=== PATIENT | female | born 1970 | race Caucasian/White ===

== ENCOUNTER 2016-05-26 15:09 | Inpatient (IN) | payer OTHER ==
--- NOTE | 2016-05-26 17:22 | ERNOTE ---
Abdominal HPI - General Chief Complaint: Abdominal Pain Source: patient Exam Limitations: no limitations - Immun/Allergies/Home Medications Immunizatons: IMMUNIZATION HX Immunizations Up to Date Yes History of Influenza Vaccine No Hx Pneumococcal Vaccination No Allergies/Adverse Reactions: Allergies nitrofurantoin [From Macrobid] Allergy (Mild, Verified 05/26/16 16:25) Hives nitrofurantoin macrocrystalline [From Macrobid] Allergy (Mild, Verified 16:25) Hives Sulfa (Sulfonamide Antibiotics) Allergy (Mild, Verified 05/26/16 16:25) Hives morphine Adverse Reaction (Mild, Verified 05/26/16 16:25) Headache Home Medications: HOME MEDICATIONS Ondansetron HCl [Zofran] 1 - 2 mg PO Q8H PRN #10 tab 01/03/16 [Last Taken Unknown] - History of Present Illness Timing: constant Quality: severe, cramping Activities at Onset: none Prior Abdominal Problems: Present: none Prior Treatment: Present: treated by physician Review of Systems - Review of Systems Constitutional: Present: See HPI EYE: Present: no symptoms reported ENT: Present: no symptoms reported Respiratory: Present: no symptoms reported Cardiology: Present: no symptoms reported Gastrointestinal/Abdominal: Present: nausea, abdominal pain Genitourinary: Present: no symptoms reported Musculoskeletal: Present: no symptoms reported Skin: Present: no symptoms reported Neurological: Present: no symptoms reported Endocrine: Present: no symptoms reported Hematologic/Lymphatic: Present: no symptoms reported Psych: Present: no symptoms reported - Patient's Past Medical History Patient History - Medical: Kidney stone, Other Patient History - Cardiac/Respiratory: No pertinent hx Patient History - Cancer: No Hx of Cancer Patient History - Surgical Procedures: Appendectomy, Cholecystectomy, Hysterectomy, T & A Patient History - Other: None - Family History Father Family History - Medical: No pertinent hx Family History - Cardiac/Respiratory: Myocardial Infarction Mother Family History - Medical: Other Family History - Cardiac/Respiratory: Asthma, Hypertension, Hyperlipidemia - Social History Living Situations: spouse Abuse History: No History of abuse Psych History: No pertinent hx Alcohol Use: none Drug Use: none - Immunizations Immunizations Up to Date: Yes Hx Pneumococcal Vaccination: No History of Influenza Vaccine: No Physical Exam - Physical Exam General Appearance: Present: wd/wn, alert, moderate distress Eye Exam: Normal inspection: bilateral, PERRL: bilateral Ears, Nose, Throat: Present: normal ENT inspection, H, normal pharynx Neck: Present: normal inspection, nontender Respiratory: Present: no respiratory distress, normal breath sounds, no accessory muscle use, chest nontender, lungs clear Cardiovascular/Chest: Present: regular rate, rhythm, no murmur, normal peripheral pulses Peripheral Pulses: N=norm/S=strong/W=weak/B=bound/A=absent: Dorsalis-pedis (L): Normal Gastrointestinal/Abdominal: Present: soft, no organomegaly, tenderness, abnormal bowel sounds Rectal Exam: Present: deferred Back Exam: Present: normal inspection, normal range of motion Extremity Exam: Present: normal inspection, non-tender, no edema, normal range of motion Neurological Exam: Present: alert, oriented, normal mood/affect Skin Exam: Present: normal color, warm/dry Lymphatic Exam: Present: no adenopathy ED Progress - Vital Signs Patient's Vital Signs:: I have reviewed the patient's vital signs. Vital Signs: Vital Signs 05/26/16 16:05 Temperature 37.0 C Pulse Rate 95 Respiratory 22 H Rate Blood Pressure 128/82 O2 Sat by Pulse 95 Oximetry - Progress/Reassessment Chief Complaint: Abdominal Pain Progress:: Unchanged Progress Note-Subjective: 05/26/16 17:19 Patient was transferred here from [facility] because they do not have surgical services. Patient will be admitted to the surgical floor and the NG is in place Dr. Hayden is aware the patient is here and Melody Pacheco has agreed to admit. Plan - Plan Plan: Patient to be admitted to the general medical floor, surgical consult has been sought, patient has an NG in place and she'll be held nothing by mouth. Departure - Departure Clinical Impression: Small bowel obstruction Disposition: [facility] Condition: Fair
--- OUTSIDE RECORDS SUMMARY | 2016-05-26 17:26 | XMS REPORT | Continuity of Care Document ---
:1970 Author Organization [facility] ([facility]) Address [address] [place] [address] Phone [phone] Care Team Providers Name Role Phone Unavailable Primary Care Provider Unavailable Source Comments This disclosure is being made pursuant to the Care Everywhere program, applicable federal and state laws, and may not contain all informaitonavailable regarding this patient.[facility] ([facility]) Active Allergies and Adverse Reactions Allergen Noted Date Severity Reactions Comments Nitrofuran Analogues Urticaria (Hives) Macrodantin Sulfadoxine Urticaria (Hives) Current Medications Prescription Sig. Disp. Refills Start End Date Status Date FEXOFENADINE HCL Take 1 Tab by mouth Active (CB PO) daily. simvastatin 20 mg Take 1 Tab by mouth every 30 Tab 3 Active tablet evening. Indications: 4 HYPERCHOLESTEROLEMIA ondansetron 8 mg Take 1 Tab by mouth every 30 Tab 0 Active tablet 8 hours as needed. 4 Indications: nausea fluticasone 50 use 2 Sprays into both 16 g 1 Active mcg/Actuation nostrils daily. 4 nasal spray Indications: ALLERGIC RHINITIS LORazepam 0.5 mg Take 1 Tab by mouth every 30 Tab 0 Active tablet 8 hours as needed. 4 Indications: ANXIETY tiZANidine 2 mg Take 2 mg by mouth 3 Active tablet times daily as needed. traMADol 50 mg Take 50 mg by mouth 3 Active tablet times daily as needed. omeprazole 20 mg Take 1 capsule (20 mg 90 capsule 11 Active enteric coated total) by mouth daily. 6 capsule HYDROcodone-aceta Take 1 tablet by mouth 50 tablet 0 Active minophen 5-325 mg every 6 hours as needed 6 per tablet for pain. Active Problems Problem Noted Date Chronic LBP 05/14/2013 ANDRZEJ (stress urinary incontinence, female) 05/14/2013 Nocturia 05/14/2013 Urinary urgency 05/14/2013 Environmental allergies 05/14/2013 Muscle weakness 05/14/2013 Atrophic vaginitis 05/14/2013 Constipation 05/14/2013 Ochoa's esophagus 11/20/2012 Overview: Small areas of Best's intestinal metaplasia, s/p fundoplication, dilated to 15 mm Hyperlipidemia 11/20/2012 Adult BMI 37.0-37.9 kg/sq m 06/24/2012 Obesity, unspecified 06/19/2010 Kidney calculi 08/07/2009 Resolved Problems Problem Noted Date Resolved Date Abdominal pain 11/23/2012 05/14/2013 Gross hematuria 10/02/2011 05/14/2013 RUQ abdominal pain 06/19/2010 05/14/2013 Weight gain 06/19/2010 11/20/2012 Fatigue 06/19/2010 08/12/2012 GERD (gastroesophageal reflux disease) 06/19/2010 08/12/2012 Tobacco abuse 06/19/2010 11/20/2012 Most Recent Encounters Date Type Specialty Providers Description 03/13/2016 Office Visit Urology Sam Bingham MD Subj: RE: Appointment Jodi Robison PA-C canceled Immunizations Name Dates Previously Given Next Due Influenza, PF 11/15/2011 Influenza, quadrivalent PF 11/20/2012 Tdap 11/15/2011 Social History Tobacco Use Types Packs/Day Years Used Date Former Smoker Cigarettes 1 30 Quit: 05/12/2011 Smokeless Tobacco: Never Used Tobacco Cessation:Counseling Given: Yes Comments: Alcohol Use Drinks/Week oz/Week Comments No Last Filed Vital Signs Vital Sign Reading Time Taken Blood Pressure 140/85 09/06/2015 11:57 AM CDT Pulse 103 09/06/2015 11:57 AM CDT Temperature 37.2 C (99 F) 09/06/2015 11:57 AM CDT Respiratory Rate 16 06/04/2013 12:10 PM CDT Height 1.702 m (5' 7.01") 08/17/2015 8:18 AM CDT Weight 119.5 kg (263 lb 7.2 oz) 08/17/2015 8:18 AM CDT Body Mass Index 41.25 08/17/2015 8:18 AM CDT Oxygen Saturation 9% 07/12/2015 1:26 PM CDT Plan of Care Patient Goal Type Goal Diet Reduce calorie intake Lifestyle Increase physical activity Health Maintenance Due Date Last Done Comments Hepatitis B Vaccine (1 of 3 1970 - Primary Series) MMR Vaccine 1986 Mammogram 11/20/2013 11/20/2012, 10/02/2011, 06/22/2010 Cervical Cancer Screening 05/12/2014 05/13/2011 Influenza Vaccine: Seasonal 09/18/2015 11/20/2012, (#1) 11/15/2011 Lipid Disorder Screening 11/20/2017 11/20/2012, Additional history exists 04/11/2011, 10/11/2010 Td Vaccine 11/14/2021 11/15/2011, 04/11/2003 Tdap Vaccine Completed 11/15/2011 Results from Last 3 Months Not on file
--- OUTSIDE RECORDS SUMMARY | 2016-05-26 17:27 | XMS REPORT | Summary of Care ---
:1970 Author Organization [facility] Address [address] [place] [address] Care Team Providers Name Role Phone Yaquelin Yadav Primary Care Physician Encounter Date(s): 03/08/16 - 03/08/16 [facility], [address] [place] [address] Discharge Disposition: 01 Discharged to Home or Self Care Attending Physician: Mckinley Peng MD Vital Signs No data available for this section Problem List Condition Effective Dates Status Health Status Informant Gross hematuria(Confirmed) Active Hydroureter(Confirmed) Active CALCULUS OF KIDNEY(Confirmed) Active Back pain, chronic(Confirmed) Active Calculus of ureter(Confirmed) Active Allergies, Adverse Reactions, Alerts Substance Reaction Severity Status Macrodantin Hives Severe Active morphine H/O: migraine Severe Active sulfa drugs Hives Severe Active Medications acyclovir 200 mg oral capsule cap(s), Oral, 5x/Day, 0 Refill(s), Start Date: 03/03/14 9:11:00 UNDER CUTTER Start Date: 03/03/14 Stop Date: 03/14/14 Status: Completedazithromycin 250 mg oral tablet 1 packet(s), Oral, Per Package Label, as directed on package labeling, # 6 tab(s ), 0 Refill(s), Start Date: 01/24/16 14:29:00 UNDER CUTTER Start Date: 01/24/16 Stop Date: 01/29/16 Status: Orderedbaclofen 20 mg oral tablet 1 tab(s), Oral, TID, Start Date: 11/17/15 9:53:00 CDT Start Date: 11/17/15 Stop Date: 12/29/15 Status: CompletedCarafate 1 g oral tablet 1 tab(s), Oral, QID, # 120 tab(s), 0 Refill(s), Start Date: 01/30/16 8:43:00 UNDER CUTTER , Pharmacy: [facility] [id number] Start Date: 01/30/16 Stop Date: 02/16/16 Status: DiscontinuedCeleXA 10 mg oral tablet 1 tab(s), Oral, Daily, # 30 tab(s), 0 Refill(s) Start Date: 06/29/13 Stop Date: 03/07/14 Status: Discontinuedcephalexin 500 mg oral capsule 1 cap(s), Oral, QID, Start Date: 11/17/15 9:53:00 CDT Start Date: 11/17/15 Stop Date: 11/17/15 Status: DiscontinuedCipro 500 mg oral tablet 1 tab(s), Oral, q12hr, # 14 tab(s), 0 Refill(s), Start Date: 08/15/14 7:56:00 CDT, [id number] Start Date: 08/15/14 Stop Date: 09/21/14 Status: CompletedDiflucan 150 mg oral tablet 1 tab(s), Oral, Daily, # 3 tab(s), 0 Refill(s), Start Date: 02/22/15 13:44:00 UNDER CUTTER, Pharmacy: [place], [place] Start Date: 02/22/15 Stop Date: 11/17/15 Status: CompletedDilaudid 2 mg oral tablet 1 tab(s), Oral, q4hr, PRN for pain, # 40 tab(s), 0 Refill(s), other reason (Rx) Start Date: 11/24/13 Stop Date: 03/03/14 Status: CompletedDilaudid 2 mg oral tablet 1 tab(s), Oral, q6hr interval, PRN pain severe 8-10, # 24 tab(s), 0 Refill(s), Start Date: 11/17/15 17:14:00 CDT, Pharmacy: [place], [place] Start Date: 11/17/15 Stop Date: 12/29/15 Status: CompletedDitropan 5 mg oral tablet 1 tab(s), Oral, q12hr, PRN bladder spasm, cramping, severe stent pain, # 30 tab( s), 1 Refill(s), Start Date: 11/17/15 17:14:00 CDT, Pharmacy: [facility] [place], [place] Start Date: 11/17/15 Stop Date: 12/29/15 Status: CompletedDME - Shoulder Immobilizer See Instructions, Diagnosis Code: Length of Need: , # 1 EA, 0 Refill(s), 06/29/13 16:39:00 CDT, Supply Start Date: 06/29/13 Stop Date: 06/29/13 Status: CompletedFlexeril 10 mg oral tablet 1 tab(s), Oral, TID, X 10 days, # 30 tab(s), 0 Refill(s), Start Date: 12/05/15 18:17:00 CDT Start Date: 12/05/15 Stop Date: 12/15/15 Status: Completedibuprofen 800 mg oral tablet 1 tab(s), Oral, TID, # 90 tab(s), 0 Refill(s), Start Date: 03/16/14 11:26:00 UNDER CUTTER , Pharmacy: [facility] [id number] Start Date: 03/16/14 Stop Date: 11/17/15 Status: Completedibuprofen 800 mg oral tablet 1 tab(s), Oral, TID, # 90 tab(s), 0 Refill(s), Pharmacy: [facility] [id number] Start Date: 12/02/13 Stop Date: 03/07/14 Status: Discontinuedibuprofen 800 mg oral tablet 1 tab(s), Oral, TID, X 30 days, # 90 tab(s), 0 Refill(s), Pharmacy: [facility] [id number] Start Date: 08/25/13 Stop Date: 09/24/13 Status: Completedibuprofen 800 mg oral tablet 1 tab(s), Oral, TID, X 30 days, # 90 tab(s), 0 Refill(s), called to pharmacy (Rx ) Start Date: 10/28/13 Stop Date: 12/02/13 Status: Completedibuprofen 800 mg oral tablet 1 tab(s), Oral, TID, X 30 days, # 90 tab(s), 0 Refill(s), [id number] Start Date: 09/24/13 Stop Date: 10/28/13 Status: Completedipratropium 21 mcg/inh (0.03%) nasal spray 2 spray(s), Nasal, BID, Start Date: 11/17/15 9:53:00 CDT Start Date: 11/17/15 Status: Orderedketorolac 10 mg oral tablet 1 tab(s), Oral, TID, PRN pain moderate 4-7, not to exceed 40 mg/day and 5 days duration for all dose forms, # 10 tab(s), 0 Refill(s), Start Date: 11/17/15 17: 15:00 CDT, Pharmacy: [place], [place] Start Date: 11/17/15 Stop Date: 12/29/15 Status: CompletedLevaquin 500 mg oral tablet 1 tab(s), Oral, Daily, Do not start this abx unless you have fevers or the day before your clinic appt for stent removal, # 3 tab(s), 0 Refill(s), Start Date: 11/17/15 17:14:00 CDT, Pharmacy: [place], [place] Start Date: 11/17/15 Stop Date: 12/29/15 Status: CompletedMiraLax oral powder for reconstitution 17 gm=, Oral, Daily, # 527 gm, 0 Refill(s), Start Date: 11/17/15 17:14:00 CDT, Pharmacy: [place], [place] Start Date: 11/17/15 Stop Date: 12/29/15 Status: CompletedNeurontin 100 mg oral capsule 1 cap(s), Oral, TID, # 240 cap(s), 0 Refill(s) Start Date: 06/29/13 Stop Date: 06/29/13 Status: CompletedNorco 5 mg-325 mg oral tablet See Instructions, PRN for pain, 1 tab(s) Oral q4-6hr prn pain, # 60 tab(s), 0 Refill(s), Start Date: 01/27/14 15:54:00 UNDER CUTTER, other reason (Rx) Start Date: 01/27/14 Stop Date: 02/15/14 Status: CompletedNorco 5 mg-325 mg oral tablet See Instructions, PRN for pain, 1-2 tab(s) Oral q4-6hr prn pain, # 60 tab(s), 0 Refill(s), Start Date: 02/15/14 8:46:18 UNDER CUTTER, other reason (Rx) Start Date: 02/15/14 Stop Date: 03/03/14 Status: CompletedNorco 5 mg-325 mg oral tablet See Instructions, PRN for pain, 1-2 tab(s) Oral q4-6hr prn pain, # 42 tab(s), 0 Refill(s), Start Date: 03/03/14 8:47:43 UNDER CUTTER, other reason (Rx) Start Date: 03/03/14 Stop Date: 03/03/14 Status: CompletedNorco 5 mg-325 mg oral tablet 1 tab(s), Oral, q6hr, PRN for pain, X 5 days, # 20 tab(s), 0 Refill(s), Start Date: 12/05/15 18:17:00 CDT Start Date: 12/05/15 Stop Date: 12/10/15 Status: CompletedNorco 5 mg-325 mg oral tablet 2 tab(s), Oral, q6hr, PRN for pain, # 50 tab(s), 0 Refill(s), Start Date: 7:38:00 UNDER CUTTER, other reason (Rx) Start Date: 04/13/14 Stop Date: 11/17/15 Status: Completednortriptyline 10 mg oral capsule 2 cap(s), Oral, HS, # 60 cap(s), 0 Refill(s), Start Date: 02/16/16 10:48:00 UNDER CUTTER , Pharmacy: [facility] [id number] Start Date: 02/16/16 Status: Orderedomeprazole 20 mg oral delayed release capsule 1 cap(s), Oral, Daily, Start Date: 11/17/15 9:53:00 CDT Start Date: 11/17/15 Stop Date: 02/16/16 Status: Discontinuedomeprazole 20 mg oral delayed release tablet 2 tab(s), Oral, BID, # 120 tab(s), 0 Refill(s) Start Date: 06/29/13 Stop Date: 06/29/13 Status: Completedomeprazole 40 mg oral delayed release capsule 1 cap(s), Oral, Daily, # 90 cap(s), 0 Refill(s), Start Date: 01/30/16 8:44:00 UNDER CUTTER, Pharmacy: [facility] [id number] Start Date: 01/30/16 Stop Date: 03/07/16 Status: DiscontinuedoxyCODONE-acetaminophen 7.5 mg-325 mg oral tablet See Instructions, 1-2 tab(s) Oral q4-6hr interval prn for pain, # 40 tab(s), 0 Refill(s), Start Date: 12/30/13 9:21:00 UNDER CUTTER, other reason (Rx) Start Date: 12/30/13 Stop Date: 01/06/14 Status: CompletedoxyCODONE-acetaminophen 7.5 mg-325 mg oral tablet See Instructions, 1-2 tab(s) Oral q4-6hr interval prn for pain, # 60 tab(s), 0 Refill(s), Start Date: 01/06/14 13:23:12 UNDER CUTTER, called to pharmacy (Rx) Start Date: 01/06/14 Stop Date: 03/03/14 Status: Completedpantoprazole 40 mg oral delayed release tablet 1 tab(s), Oral, Daily, # 90 tab(s), 3 Refill(s), Start Date: 03/07/16 10:23:00 UNDER CUTTER, Pharmacy: [facility] [id number] Start Date: 03/07/16 Status: OrderedPercocet 5/325 oral tablet 1-2 tab(s), Oral, q4hr interval, PRN pain moderate 4-7, # 60 tab(s), 0 Refill(s) , Start Date: 11/25/13 9:50:02 CDT, other reason (Rx) Start Date: 11/25/13 Stop Date: 12/07/13 Status: CompletedPercocet 5/325 oral tablet 1-2 tab(s), Oral, q4hr interval, PRN pain moderate 4-7, # 40 tab(s), 0 Refill(s) , other reason (Rx) Start Date: 11/12/13 Stop Date: 11/25/13 Status: CompletedPercocet 5/325 oral tablet See Instructions, PRN for pain, 1-2 tab(s) Oral q4-6hr, # 40 tab(s), 0 Refill(s) , other reason (Rx) Start Date: 10/21/13 Stop Date: 11/19/13 Status: CompletedPercocet 5/325 oral tablet 1-2 tab(s), Oral, q4hr interval, PRN pain moderate 4-7, # 60 tab(s), 0 Refill(s) , Start Date: 12/07/13 13:58:01 CDT Start Date: 12/07/13 Stop Date: 12/31/13 Status: CompletedPercocet 5/325 oral tablet See Instructions, tab(s) 1-2 tab(s) Oral q6hr prn pain, # 50 tab(s), 0 Refill(s) , Start Date: 04/01/14 14:33:00 UNDER CUTTER, called to pharmacy (Rx) Start Date: 04/01/14 Stop Date: 11/17/15 Status: CompletedPercocet 7.5/325 oral tablet See Instructions, PRN for pain, 1-2 tab(s) Oral q4-6hr prn pain, # 60 tab(s), 0 Refill(s), Start Date: 03/17/14 10:35:00 UNDER CUTTER, other reason (Rx) Start Date: 03/17/14 Stop Date: 04/28/14 Status: CompletedPercocet 7.5/325 oral tablet See Instructions, PRN for pain, 1-2 tab(s) Oral q4-6hr prn pain, # 60 tab(s), 0 Refill(s), Start Date: 04/28/14 15:23:34 CDT, called to pharmacy (Rx) Start Date: 04/28/14 Stop Date: 11/17/15 Status: Completedpromethazine 25 mg oral tablet 1 tab(s), Oral, q4hr, PRN for nausea/vomiting, # 30 tab(s), 0 Refill(s), Start Date: 01/06/14 13:21:53 UNDER CUTTER, Pharmacy: [facility] [id number] Start Date: 01/06/14 Stop Date: 11/17/15 Status: Completedpromethazine 25 mg oral tablet 1 tab(s), Oral, q4hr, PRN for nausea/vomiting, # 30 tab(s), 0 Refill(s), Start Date: 12/07/13 16:01:00 CDT, Pharmacy: [facility] [id number] Start Date: 12/07/13 Stop Date: 01/06/14 Status: Completedsimvastatin 10 mg oral tablet 2 tab(s), Oral, HS, # 30 tab(s), 0 Refill(s) Start Date: 06/29/13 Stop Date: 11/17/15 Status: CompletedTessalon 200 mg oral capsule 1 cap(s), Oral, TID, # 30 cap(s), 0 Refill(s), Start Date: 12/29/15 11:14:00 UNDER CUTTER Start Date: 12/29/15 Stop Date: 01/08/16 Status: OrderedtraMADol 50 mg oral tablet 1 tab(s), Oral, q4hr, PRN pain mild 1-3, # 24 tab(s), 0 Refill(s), Start Date: 11/17/15 17:15:00 CDT, Pharmacy: [place], [place] Start Date: 11/17/15 Stop Date: 12/29/15 Status: CompletedtraMADol 50 mg oral tablet See Instructions, 1-2 tab(s) Oral q4-6hr prn pain, # 50 tab(s), 0 Refill(s), Start Date: 05/12/14 15:03:00 CDT, called to pharmacy (Rx) Start Date: 05/12/14 Stop Date: 11/17/15 Status: CompletedTylenol with Codeine #3 oral tablet See Instructions, PRN for pain, 2 tab(s) Oral q4-6hr prn pain, # 60 tab(s), 0 Refill(s), Start Date: 12/21/13 9:12:00 UNDER CUTTER, called to pharmacy (Rx) Start Date: 12/21/13 Stop Date: 03/03/14 Status: CompletedTylenol with Codeine #4 oral tablet 1 tab(s), Oral, q6hr interval, # 30 tab(s), 0 Refill(s) Start Date: 06/29/13 Stop Date: 07/30/13 Status: CompletedVicodin 5 mg-300 mg oral tablet 1 tab(s), Oral, q6hr interval, PRN pain moderate 4-7, X 30 days, # 120 tab(s), 0 Refill(s), called to pharmacy (Rx) Start Date: 09/24/13 Stop Date: 10/24/13 Status: CompletedVicodin 5 mg-300 mg oral tablet 1 tab(s), Oral, q6hr interval, PRN pain moderate 4-7, called to [facility], # 60 tab(s), 0 Refill(s) Start Date: 08/17/13 Stop Date: 09/24/13 Status: DiscontinuedVicodin 5 mg-300 mg oral tablet 1 tab(s), Oral, q6hr interval, PRN pain moderate 4-7, # 120 tab(s), 0 Refill(s) , called to pharmacy (Rx) Start Date: 10/28/13 Stop Date: 11/22/13 Status: DiscontinuedVicodin ES 7.5 mg-300 mg oral tablet 1 tab(s), Oral, q6hr interval, X 30 days, # 120 tab(s), 0 Refill(s) Start Date: 08/25/13 Stop Date: 09/24/13 Status: CompletedVicodin ES 7.5 mg-300 mg oral tablet 1 tab(s), Oral, q6hr interval, X 30 days, # 120 tab(s), 0 Refill(s) Start Date: 08/25/13 Stop Date: 08/25/13 Status: DiscontinuedZithromax Z-Ramirez 0 Refill(s), Start Date: 03/03/14 9:26:00 UNDER CUTTER Start Date: 03/03/14 Stop Date: 03/03/14 Status: DiscontinuedZithromax Z-Ramirez 250 mg oral tablet See Instructions, as directed on package labeling, # 6 tab(s), 0 Refill(s), Start Date: 03/03/14 10:21:40 UNDER CUTTER, Pharmacy: [place], [place] Start Date: 03/03/14 Stop Date: 03/10/14 Status: Completed Results No data available for this section Immunizations No data available for this section Procedures Procedure Date Related Diagnosis Body Site Esophageal Dilation1 01/26/16 Cystoureteroscopy With Lithotripsy (Bilateral)2 11/17/15 Arthroscopy Shoulder (Left, Shoulder L)3 03/14/14 Arthroscopy Shoulder (Right, Shoulder R)4 11/24/13 Appendectomy Arthroscopy of shoulder5, 6 Cholecystectomy History of Castillo fundoplication Hysterectomy Lithotripsy 1auto-populated from documented surgical [id number] from documented surgical [id number] from documented surgical [id number] from documented surgical [id number] a bicep tendon repair with [id number] Social History No data available for this section Assessment and Plan No data available for this section
--- OUTSIDE RECORDS SUMMARY | 2016-05-26 17:27 | XMS REPORT | Continuity of Care Document ---
:1970 Author Organization [facility] ([facility]) Address [address] [place] [address] Phone [phone] Care Team Providers Name Role Phone Unavailable Primary Care Provider Unavailable Source Comments This disclosure is being made pursuant to the Care Everywhere program, applicable federal and state laws, and may not contain all informaitonavailable regarding this patient.[facility] ([facility]) Active Allergies and Adverse Reactions Allergen [...]
--- OUTSIDE RECORDS SUMMARY | 2016-05-26 17:27 | XMS REPORT | Summary of Care ---
:1970 Author Organization [facility] Address [address] [place] [address] Care Team Providers Name Role Phone Yaquelin Yadav Nadir Primary Care Physician Encounter Date(s): 04/10/16 - 04/10/16 [facility] Alyce Massey, [address] [place], [place] [address] Discharge Diagnosis: Herniated nucleus pulposus, C6-7 right Discharge Diagnosis: Right arm pain Discharge Diagnosis: Neural foraminal stenosis of cervical spine Discharge Disposition: 01 Discharged to Home or Self Care Attending Physician: Rajesh Osborn MD Referring Physician: Chalo Campebll MD Vital Signs Most recent to oldest [Reference Range]: 1 Peripheral Pulse Rate [60-100 bpm] 84 bpm (04/10/16 2:57 PM) Blood Pressure [90-130/60-90 mmHg] 116/78mmHg (04/10/16 2:57 PM) Mean Arterial Pressure, Cuff 91 mmHg (04/10/16 2:57 PM) Most recent to oldest [Reference Range]: 1 Height/Length Measured 172 cm (04/10/16 2:57 PM) Weight Dosing 119.00 kg1 (04/10/16 3:01 PM) Weight Measured 119 kg (04/10/16 2:57 PM) BSA Measured 2.29 m2 (04/10/16 2:57 PM) Body Mass Index Measured 40.22 kg/m2 (04/10/16 2:57 PM) 1Result Comment: This result was because the dosing weight was either not entered or it is>30 days old. This result is based off: Weight Measured April 10, 2016 14:57:00 PAD MACHINE OFFBEARER by Jodi Fatima CMA Problem List Condition Effective Dates Status Health Status Informant Gross hematuria(Confirmed) Active Hydroureter(Confirmed) Active CALCULUS OF KIDNEY(Confirmed) Active Back pain, chronic(Confirmed) Active Calculus of ureter(Confirmed) Active Allergies, Adverse Reactions, Alerts Substance Reaction Severity Status Macrodantin Hives Severe Active morphine H/O: migraine Severe Active sulfa drugs Hives Severe Active Medications acyclovir 200 mg oral capsule cap(s), Oral, 5x/Day, 0 Refill(s), Start Date: 03/03/14 9:11:00 PAD MACHINE OFFBEARER Start Date: 03/03/14 Stop Date: 03/14/14 Status: Completedazithromycin 250 mg oral tablet 1 packet(s), Oral, Per Package Label, as directed on package labeling, # 6 tab(s ), 0 Refill(s), Start Date: 01/24/16 14:29:00 PAD MACHINE OFFBEARER Special Instructions: as directed on package labeling Start Date: 01/24/16 Stop Date: 01/29/16 Status: Orderedbaclofen 20 mg oral tablet 1 tab(s), Oral, TID, Start Date: 11/17/15 9:53:00 CDT Start Date: 11/17/15 Stop Date: 12/29/15 Status: CompletedCarafate 1 g oral tablet 1 tab(s), Oral, QID, # 120 tab(s), 0 Refill(s), Start Date: 01/30/16 8:43:00 PAD MACHINE OFFBEARER , Pharmacy: [facility] [id number] Start Date: 01/30/16 Stop Date: 02/16/16 Status: [...] Refill(s), Start Date: 08/15/14 7:56:00 CDT, Pharmacy: [email or web address] [id number] Start Date: 08/15/14 Stop Date: 09/21/14 Status: CompletedDiflucan 150 mg oral tablet 1 tab(s), Oral, Daily, # 3 tab(s), 0 Refill(s), Start Date: 02/22/15 13:44:00 PAD MACHINE OFFBEARER, Pharmacy: [place], [place] Start Date: 02/22/15 Stop Date: 11/17/15 Status: CompletedDilaudid 2 mg oral tablet 1 tab(s), Oral, q4hr, PRN for pain, # 40 tab(s), 0 Refill(s), other reason (Rx) Start Date: 11/24/13 Stop Date: 03/03/14 Status: CompletedDilaudid 2 mg oral tablet 1 tab(s), Oral, q6hr interval, PRN pain severe 8-10, # 24 tab(s), 0 Refill(s), Start Date: 11/17/15 17:14:00 CDT, Pharmacy: [place], [place] Start Date: 11/17/15 Stop Date: 12/29/15 Status: CompletedDitropan 5 mg oral tablet 1 tab(s), Oral, q12hr, PRN bladder spasm, cramping, severe stent pain, # 30 tab( s), 1 Refill(s), Start Date: 11/17/15 17:14:00 CDT, Pharmacy: [place], [place] Start Date: 11/17/15 Stop Date: 12/29/15 Status: CompletedDME - Shoulder Immobilizer See Instructions, Diagnosis Code: Length of Need: , # 1 EA, 0 Refill(s), 06/29/13 16:39:00 CDT, Supply Special Instructions: Diagnosis Code: Length of Need: Start Date: 06/29/13 Stop Date: 06/29/13 Status: CompletedFlexeril 10 mg oral tablet 1 tab(s), Oral, TID, X 10 days, # 30 tab(s), 0 Refill(s), Start Date: 12/05/15 18:17:00 CDT Start Date: 12/05/15 Stop Date: 12/15/15 Status: Completedibuprofen 800 mg oral tablet 1 tab(s), Oral, TID, # 90 tab(s), 0 Refill(s), Start Date: 03/16/14 11:26:00 PAD MACHINE OFFBEARER , [facility] [id number] Start Date: 03/16/14 Stop Date: 11/17/15 Status: Completedibuprofen 800 mg oral tablet 1 tab(s), Oral, TID, # 90 tab(s), 0 Refill(s), [facility] [id number] Start Date: 12/02/13 Stop Date: 03/07/14 Status: Discontinuedibuprofen 800 mg oral tablet 1 tab(s), Oral, TID, X 30 days, # 90 tab(s), 0 Refill(s), [facility] [id number] Start Date: 08/25/13 Stop Date: 09/24/13 Status: Completedibuprofen 800 mg oral tablet 1 tab(s), Oral, TID, X 30 days, # 90 tab(s), 0 Refill(s), called to pharmacy (Rx ) Start Date: 10/28/13 Stop Date: 12/02/13 Status: Completedibuprofen 800 mg oral tablet 1 tab(s), Oral, TID, X 30 days, # 90 tab(s), 0 Refill(s), Pharmacy: [email or web address] [id number] Start Date: 09/24/13 Stop Date: 10/28/13 Status: [...] Start Date: 11/17/15 17: 15:00 CDT, Pharmacy: [place], [place] Special Instructions: not to exceed 40 mg/day and 5 days duration for all dose forms Start Date: 9/30/16 Stop Date: 12/29/15 Status: CompletedLevaquin 500 mg oral tablet 1 tab(s), Oral, Daily, Do not start this abx unless you have fevers or the day before your clinic appt for stent removal, # 3 tab(s), 0 Refill(s), Start Date: 11/17/15 17:14:00 CDT, Pharmacy: [place], [place] Special Instructions: Do not start this abx unless you have fevers or the day before your clinic appt for stent removal Start Date: 11/17/15 Stop Date: 12/29/15 Status: CompletedMiraLax oral powder for reconstitution 17 gm=, Oral, Daily, # 527 gm, 0 Refill(s), Start Date: 11/17/15 17:14:00 CDT, Pharmacy: [place], [place] Start Date: 11/17/15 Stop Date: 12/29/15 Status: CompletedNeurontin 100 mg oral capsule 1 cap(s), Oral, TID, # 240 cap(s), 0 Refill(s) Start Date: 06/29/13 Stop Date: 06/29/13 Status: CompletedNorco 5 mg-325 mg oral tablet See Instructions, PRN for pain, 1 tab(s) Oral q4-6hr prn pain, # 60 tab(s), 0 Refill(s), Start Date: 01/27/14 15:54:00 PAD MACHINE OFFBEARER, other reason (Rx) Special Instructions: 1 tab(s) Oral q4-6hr prn pain Start Date: 01/27/14 Stop Date: 02/15/14 Status: CompletedNorco 5 mg-325 mg oral tablet See Instructions, PRN for pain, 1-2 tab(s) Oral q4-6hr prn pain, # 60 tab(s), 0 Refill(s), Start Date: 02/15/14 8:46:18 PAD MACHINE OFFBEARER, other reason (Rx) Special Instructions: 1-2 tab(s) Oral q4-6hr prn pain Start Date: 02/15/14 Stop Date: 03/03/14 Status: CompletedNorco 5 mg-325 mg oral tablet See Instructions, PRN for pain, 1-2 tab(s) Oral q4-6hr prn pain, # 42 tab(s), 0 Refill(s), Start Date: 03/03/14 8:47:43 PAD MACHINE OFFBEARER, other reason (Rx) Special Instructions: 1-2 tab(s) Oral q4-6hr prn pain Start Date: 03/03/14 Stop Date: 03/03/14 Status: CompletedNorco 5 mg-325 mg oral tablet 1 tab(s), Oral, q6hr, PRN for pain, X 5 days, # 20 tab(s), 0 Refill(s), Start Date: 12/05/15 18:17:00 CDT Start Date: 12/05/15 Stop Date: 12/10/15 Status: CompletedNorco 5 mg-325 mg oral tablet 2 tab(s), Oral, q6hr, PRN for pain, # 50 tab(s), 0 Refill(s), Start Date: 7:38:00 PAD MACHINE OFFBEARER, other reason (Rx) Start Date: 04/13/14 Stop Date: 11/17/15 Status: Completednortriptyline 10 mg oral capsule 2 cap(s), Oral, HS, # 60 cap(s), 0 Refill(s), Start Date: 02/16/16 10:48:00 PAD MACHINE OFFBEARER , Pharmacy: [email or web address] [id number] Start Date: 02/16/16 Status: Orderedomeprazole 20 mg [...] cap(s), 0 Refill(s), Start Date: 01/30/16 8:44:00 PAD MACHINE OFFBEARER, Pharmacy: [email or web address] [id number] Start Date: 01/30/16 Stop Date: 03/07/16 Status: DiscontinuedoxyCODONE-acetaminophen 7.5 mg-325 mg oral tablet See Instructions, 1-2 tab(s) Oral q4-6hr interval prn for pain, # 40 tab(s), 0 Refill(s), Start Date: 12/30/13 9:21:00 PAD MACHINE OFFBEARER, other reason (Rx) Special Instructions: 1-2 tab(s) Oral q4-6hr interval prn for pain Start Date: 12/30/13 Stop Date: 01/06/14 Status: CompletedoxyCODONE-acetaminophen 7.5 mg-325 mg oral tablet See Instructions, 1-2 tab(s) Oral q4-6hr interval prn for pain, # 60 tab(s), 0 Refill(s), Start Date: 01/06/14 13:23:12 PAD MACHINE OFFBEARER, called to pharmacy (Rx) Special Instructions: 1-2 tab(s) Oral q4-6hr interval prn for pain Start Date: 01/06/14 Stop Date: 03/03/14 Status: Completedpantoprazole 40 mg oral delayed release tablet 1 tab(s), Oral, Daily, # 90 tab(s), 3 Refill(s), Start Date: 03/07/16 10:23:00 PAD MACHINE OFFBEARER, Pharmacy: [facility] [id number] Start Date: 03/07/16 Status: OrderedPercocet 5/325 oral [...] tab(s), 0 Refill(s) , other reason (Rx) Special Instructions: 1-2 tab(s) Oral q4-6hr Start Date: 10/21/13 Stop Date: 11/19/13 Status: CompletedPercocet 5/325 oral tablet 1-2 tab(s), Oral, q4hr interval, PRN pain moderate 4-7, # 60 tab(s), 0 Refill(s) , Start Date: 12/07/13 13:58:01 CDT Start Date: 12/07/13 Stop Date: 12/31/13 Status: CompletedPercocet 5/325 oral tablet See Instructions, tab(s) 1-2 tab(s) Oral q6hr prn pain, # 50 tab(s), 0 Refill(s) , Start Date: 04/01/14 14:33:00 PAD MACHINE OFFBEARER, called to pharmacy (Rx) Special Instructions: tab(s) 1-2 tab(s) Oral q6hr prn pain Start Date: 04/01/14 Stop Date: 11/17/15 Status: CompletedPercocet 7.5/325 oral tablet See Instructions, PRN for pain, 1-2 tab(s) Oral q4-6hr prn pain, # 60 tab(s), 0 Refill(s), Start Date: 03/17/14 10:35:00 PAD MACHINE OFFBEARER, other reason (Rx) Special Instructions: 1-2 tab(s) Oral q4-6hr prn pain Start Date: 03/17/14 Stop Date: 04/28/14 Status: CompletedPercocet 7.5/325 oral tablet See Instructions, PRN for pain, 1-2 tab(s) Oral q4-6hr prn pain, # 60 tab(s), 0 Refill(s), Start Date: 04/28/14 15:23:34 CDT, called to pharmacy (Rx) Special Instructions: 1-2 tab(s) Oral q4-6hr prn pain Start Date: 04/28/14 Stop Date: 11/17/15 Status: Completedpromethazine 25 mg oral tablet 1 tab(s), Oral, q4hr, PRN for nausea/vomiting, # 30 tab(s), 0 Refill(s), Start Date: 01/06/14 13:21:53 PAD MACHINE OFFBEARER, [facility] [id number] Start Date: 01/06/14 Stop Date: 11/17/15 Status: Completedpromethazine 25 mg oral tablet 1 tab(s), Oral, q4hr, PRN for nausea/vomiting, # 30 tab(s), 0 Refill(s), Start Date: 12/07/13 16:01:00 CDT, Pharmacy: [facility] [id number] Start Date: 12/07/13 Stop Date: 01/06/14 Status: Completedsimvastatin 10 mg oral tablet 2 tab(s), Oral, HS, # 30 tab(s), 0 Refill(s) Start Date: 06/29/13 Stop Date: 11/17/15 Status: CompletedTessalon 200 mg oral capsule 1 cap(s), Oral, TID, # 30 cap(s), 0 Refill(s), Start Date: 12/29/15 11:14:00 PAD MACHINE OFFBEARER Start Date: 12/29/15 Stop Date: 01/08/16 Status: OrderedtraMADol 50 mg oral tablet 1 tab(s), Oral, q4hr, PRN pain mild 1-3, # 24 tab(s), 0 Refill(s), Start Date: 11/17/15 17:15:00 CDT, Pharmacy: [place], [place] Start Date: 11/17/15 Stop Date: 12/29/15 Status: CompletedtraMADol 50 mg oral tablet See Instructions, 1-2 tab(s) Oral q4-6hr prn pain, # 50 tab(s), 0 Refill(s), Start Date: 05/12/14 15:03:00 CDT, called to pharmacy (Rx) Special Instructions: 1-2 tab(s) Oral q4-6hr prn pain Start Date: 05/12/14 Stop Date: 11/17/15 Status: CompletedTylenol with Codeine #3 oral tablet See Instructions, PRN for pain, 2 tab(s) Oral q4-6hr prn pain, # 60 tab(s), 0 Refill(s), Start Date: 12/21/13 9:12:00 PAD MACHINE OFFBEARER, called to pharmacy (Rx) Special Instructions: 2 tab(s) Oral q4-6hr prn pain Start Date: 12/21/13 Stop Date: 03/03/14 Status: [...] PRN pain moderate 4-7, called to [facility], # 60 tab(s), 0 Refill(s) Special Instructions: called to [facility] Start Date: 08/17/13 Stop Date: 09/24/13 Status: [...] Z-Ramirez 0 Refill(s), Start Date: 03/03/14 9:26:00 PAD MACHINE OFFBEARER Start Date: 03/03/14 Stop Date: 03/03/14 Status: DiscontinuedZithromax Z-Ramirez 250 mg oral tablet See Instructions, as directed on package labeling, # 6 tab(s), 0 Refill(s), Start Date: 03/03/14 10:21:40 PAD MACHINE OFFBEARER, [facility] [place] Special Instructions: as directed on package labeling Start Date: 03/03/14 Stop Date: 03/10/14 Status: [...] fundoplication Hysterectomy Lithotripsy 1auto-populated from documented surgical [id number] from documented surgical [id number] from documented surgical [id number] from documented surgical [id number] a bicep tendon repair with [id number] Social History No data available for this section Assessment and Plan No data available for this section
[2016-05-26] MEDS: NORMAL SALINE 1,000 ML IV PRN (17:43)
[2016-05-26 20:25] LABS: Hematocrit 36.9 % (37.0-47.0); Hemoglobin 12.4 gm/dL (12.5-16.0); Mean Corpuscular Hemoglobin 28.6 pg (27-31); Mean Corpuscular Hgb Conc 33.6 g/dl (32-36); Mean Platelet Volume 8.2 fl (6.0-9.5); Neutrophil # 5.1 K/mm3 (1.3-6.0); Neutrophil % 71.2 % (42-75.0); Platelet Count 229 K/mm3 (150-450); Red Blood Count 4.34 M/mm3 (4.2-5.4); Red Cell Distribution Width 13.3 % (11.5-14.0); White Blood Count 7.2 K/mm3 (4.0-10.5)
[2016-05-26 20:35] LABS: Anion Gap 12.6 mmol/L (6.8-13.8); BUN/Creatinine Ratio 29.8 (9.0-21.6); Calcium * 8.5 mg/dL (7.9-10.9); Carbon Dioxide 25.9 mmol/L (24-32.6); Estimated Creat Clear 117.1; Potassium 3.5 mmol/L (3.4-4.6)
[2016-05-26] MEDS: HYDROmorphone HCL 1 MG/ML DISP.SYRIN IV PRN ×3 (20:42→23:18)
[2016-05-26] MEDS: ONDANSETRON HCL/PF 2 MG/ML VIAL IV PRN (20:43)
[2016-05-26] MEDS: PANTOPRAZOLE SODIUM 40 MG in NORMAL SALINE 100 ML IV SCH (20:46)
[2016-05-26] MEDS ORDERED: HYDROmorphone HCL 1 MG/ML DISP.SYRIN ONE (23:15)
--- NOTE | 2016-05-27 01:13 | HP ---
Chief Complaint - Chief Complaint Date of Service: 05/26/16 Time of Service: 21:30 Chief Complaint: "Vomting, Abd Pain". Source of HPI- Pt; reliable, ER provider notes, History of Present Illness: Miss Tong is a 46-year-old [facility] patient normally sees Dr. Yaquelin Yadav in [place]. Her PMH involves: Anxiety, Arthritis, Chronic Pain Syndrome, Constipation, GERD, kidney stones, Migraines, and Shingles. Patient states that at about 5 AM last night, she noticed that she was having some difficulty urinating. Shortly after, she developed severe abdominal pain which was accompanied by vomiting. She vomited numerous times before choosing to go to [facility]. She denies fevers, and chills. She also denies diarrhea. She was found to have SBO at the [facility] and had NG tube inserted. She was transferred to [facility] today due to lack of Surgical Services there. Dr Hayden consulted by the ERP and the plan was to admit the pt and continue with conservative/non-operative mgt for now. The patient has had prior abdominal surgeries involving: Appendectomy, cholecystectomy, & Niesen fundoplication. Also states that she had hernia repair in 2006, but mesh needs to be replaced. She will be admitted inpatient for minimum of 2 midnight more to ensure that the obstruction resolves or in the event that it progresses to complications that could warrant a surgical intervention. - Patient's Past Medical History Patient History - Medical: Anxiety, Arthritis, GERD, Kidney stone, Other - Migraines, Shingles, Patient History - Cardiac/Respiratory: No pertinent hx Patient History - Cancer: No Hx of Cancer Patient History - Surgical Procedures: Appendectomy, Cholecystectomy, Hysterectomy, T & A Patient History - Other: None LMP (females 10-50): hysterectomy - Family History Father Family History - Medical: No pertinent hx Family History - Cardiac/Respiratory: Myocardial Infarction Mother Family History - Medical: Other Family History - Cardiac/Respiratory: Asthma, Hypertension, Hyperlipidemia - Social History Living Situations: spouse Abuse History: No History of abuse Psych History: No pertinent hx Smoking Status: Former smoker Have you smoked in the past 12 months: No Do you dip or chew tobacco: No Smoking Stop Date: 02/15/11 Patient requests Smoking Cessation Consult: No Initiate information on Smoking Cessation: No Alcohol Use: none Drug Use: none - Immunizations Immunizations Up to Date: Yes Hx Pneumococcal Vaccination: No History of Influenza Vaccine: No Review Of Systems (GEN) - Review of Systems Generalized/Overall Review: Absent: Weakness, Chills, Fever, Malaise EENTM: Absent: Eye Pain, Blurred Vision, Ear Discharge, Nose Congestion, Throat Pain Respiratory: Absent: Cough, Shortness of Breath Cardiac: Absent: Chest Pain, Edema, Palpitations, Syncope Abdominal: Present: Nausea, Vomiting, Abdominal Pain, Constipation. Absent: Hematemesis, Diarrhea Genitourinary: Absent: Burning, Urgency, Frequency Musculoskeletal: Absent: Joint Pain, Back Pain, Joint Swelling Neurological: Absent: Headache, Anxiety, Depressed Skin: Absent: Dryness, Lesions, Lumps Endocrine: Present: Intolerance to Cold Misc: All systems neg except as marked Allergies/Adverse Reactions: Allergies Allergy/AdvReac Type Severity Reaction Status Date / Time nitrofurantoin Allergy Mild Hives Verified 05/26/16 17:14 [From Macrobid] nitrofurantoin Allergy Mild Hives Verified 05/26/16 17:14 macrocrystalline [From Macrobid] Sulfa (Sulfonamide Allergy Mild Hives Verified 05/26/16 17:14 Antibiotics) morphine AdvReac Mild Headache Verified 05/26/16 17:14 Home Medications: HOME MEDICATIONS Meloxicam [Mobic] 7.5 mg PO DAILY 05/26/16 [Last Taken Unknown] oxyCODONE HCL/ACETAMINOPHEN [Percocet 5 MG/325 MG] 1 tab PO QID PRN 05/26/16 [ Last Taken Unknown] Exam - Exam Vital Signs: Vital Signs - Last Taken Temp 36.6 C 05/27/16 00:07 Pulse 95 05/27/16 00:07 Resp 20 05/27/16 00:07 BP 131/76 05/27/16 00:07 Pulse Ox 96 05/27/16 00:07 Constitutional: Present: Alert, Oriented x3, No distress ENT Exam: Present: normal ENT inspection, hearing grossly normal, dry mucous membranes. Absent: nasal drainage, pharyngeal erythema Eye Exam: bilateral eye: normal inspection, PERRL Neck: Present: full range of motion, supple, normal inspection Back Exam: Present: normal inspection, no CVA tenderness Breasts: Present: Exam deferred Respiratory: Present: lungs clear, no accessory muscle use Cardiovascular/Chest: Present: normal peripheral pulses, regular rate, rhythm, no chest tenderness, no edema, no murmur Abdomen: Present: Normal bowel sounds, tender - mid epigastric area. /Rectal: Present: Exam deferred Extremity: Present: normal range of motion, non-tender, normal inspection Skin Exam: Present: normal color, warm/dry, no cyanosis Lymphatic: Present: no adenopathy Neurologic: Present: no motor/sensory deficits, normal mood/affect, oriented x 3. Absent: dizzy/light-headedness Appearance: Present: appropriate appearance, appropriate insight Eye contact: Present: cooperative, good eye contact, normal speech Thoughts: Present: normal thought pattern, no apparent hallucination Diagnostic Studies: Abnormal Lab Results 05/26/16 05/26/16 Range/Units 20:20 20:20 Hgb 12.4 L (12.5-16.0) gm/dL Hct 36.9 L (37.0-47.0) % BUN/Creatinine Ratio 29.8 H (9.0-21.6) Laboratory Results WBC 7.2 K/mm3 (4.0-10.5) 05/26/16 20:20 RBC 4.34 M/mm3 (4.2-5.4) 05/26/16 20:20 Hgb 12.4 gm/dL (12.5-16.0) L 05/26/16 20:20 Hct 36.9 % (37.0-47.0) L 05/26/16 20:20 MCV 85.0 fl (78-100) 05/26/16 20:20 MCH 28.6 pg (27-31) 05/26/16 20:20 MCHC 33.6 g/dl (32-36) 05/26/16 20:20 RDW 13.3 % (11.5-14.0) 05/26/16 20:20 Plt Count 229 K/mm3 (150-450) 05/26/16 20:20 MPV 8.2 fl (6.0-9.5) 05/26/16 20:20 Immature Gran % (Auto) 0.40 % (0.001-0.429) 05/26/16 20:20 Immature Gran # (Auto) 0.03 K/mm3 (0.000-0.0310) 05/26/16 20:20 Neutrophils % 71.2 % (42-75.0) 05/26/16 20:20 Lymphocytes % 20.8 % (20-51) 05/26/16 20:20 Monocytes % 6.4 % (0.0-9) 05/26/16 20:20 Eosinophils % 0.8 % (0.0-3.0) 05/26/16 20:20 Basophils % 0.4 % (0.0-1.0) 05/26/16 20:20 Nucleated RBC % 0.0 k/mm3 (0-1) 05/26/16 20:20 Neutrophils # 5.1 K/mm3 (1.3-6.0) 05/26/16 20:20 Lymphocytes # 1.5 k/mm3 (1.5-3.5) 05/26/16 20:20 Monocytes # 0.5 k/mm3 (0.0-1.0) 05/26/16 20:20 Eosinophils # 0.1 k/mm3 (0.0-0.7) 05/26/16 20:20 Absolute Basophils 0.0 k/mm3 (0.0-0.1) 05/26/16 20:20 Sodium 141 mmol/L (132-142) 05/26/16 20:20 Plasma Sodium 141 mmol/L (130-142) 05/26/16 20:20 Potassium 3.5 mmol/L (3.4-4.6) 05/26/16 20:20 Chloride 106 mmol/L (97-106) 05/26/16 20:20 Carbon Dioxide 25.9 mmol/L (24-32.6) 05/26/16 20:20 Anion Gap 12.6 mmol/L (6.8-13.8) 05/26/16 20:20 BUN 17 mg/dL (3-23) 05/26/16 20:20 Creatinine 0.57 mg/dL (0.4-1.4) 05/26/16 20:20 Est GFR (Non-Af Amer) 120 mL/min (60-130) D 05/26/16 20:20 BUN/Creatinine Ratio 29.8 (9.0-21.6) H 05/26/16 20:20 Random Glucose 99 mg/dL (70-110) 04/09/17 20:20 Calcium 8.5 mg/dL (7.9-10.9) 05/26/16 20:20 Assessment/Plan - Assessment/Plan (1) Small bowel obstruction Assessment: CT confirmed SBO. Surgery following. Will follow recommendations. The plan is to pursue non-operative management for now with: NG to LIS, IVF hydration, Antiemetics, Pain mgt, keep NPO. Problem: Acute (2) GERD (gastroesophageal reflux disease) Problem: Chronic Qualifiers: Esophagitis presence: esophagitis presence not specified Qualified Code(s) : K21.9 - Gastro-esophageal reflux disease without esophagitis (3) Chronic low back pain Problem: Chronic Qualifiers: Back pain laterality: unspecified Sciatica presence: unspecified whether sciatica present Qualified Code(s): M54.5 - Low back pain; G89.29 - Other chronic pain (4) Anxiety Problem: Chronic
[2016-05-27] MEDS: ONDANSETRON HCL/PF 2 MG/ML VIAL IV PRN ×3 (01:18→12:35)
[2016-05-27] MEDS: HYDROmorphone HCL 1 MG/ML DISP.SYRIN IV PRN ×7 (01:19→12:30)
[2016-05-27] MEDS: NORMAL SALINE 1,000 ML IV PRN ×3 (02:09→19:01)
[2016-05-27] MEDS: PANTOPRAZOLE SODIUM 40 MG in NORMAL SALINE 100 ML IV SCH ×2 (08:05→21:40)
[2016-05-27 08:14] LABS: Anion Gap 11.7 mmol/L (6.8-13.8); BUN/Creatinine Ratio 25.9 (9.0-21.6); Calcium * 8.2 mg/dL (7.9-10.9); Carbon Dioxide 25.9 mmol/L (24-32.6); Potassium 3.6 mmol/L (3.4-4.6)
[2016-05-27 08:16] LABS: Hematocrit 33.2 % (37.0-47.0); Hemoglobin 11.2 gm/dL (12.5-16.0); Mean Cell Volume 86.5 fl (78-100); Mean Corpuscular Hemoglobin 29.2 pg (27-31); Mean Corpuscular Hgb Conc 33.7 g/dl (32-36); Neutrophil # 2.6 K/mm3 (1.3-6.0); Neutrophil % 49.5 % (42-75.0); Platelet Count 174 K/mm3 (150-450); Red Blood Count 3.84 M/mm3 (4.2-5.4); Red Cell Distribution Width 13.5 % (11.5-14.0); White Blood Count 5.2 K/mm3 (4.0-10.5)
--- NOTE | 2016-05-27 08:42 | CONS ---
[facility] - General Date of Service: 05/26/16 Narrative: Asked to see this pt transferred from [place] with a small bowel obstruction. She was awakened this AM at 0500 with abdominal pain and presented to the ER in [place]. Was admitted and underwent evaluation. A CT showed a partial SBO with a possible transition point in the terminal ileum. She has had a previous appendectomy, cholecystectomy and hysterectomy. She was transferred here due to the lack of a surgeon at that facility. On arrival to the floor the patient had a bowel movement. It was a diarrhea stool. She states that her pain is improved and is located just below the Xiphisternum. - History of Present Illness Allergies/Adverse Reactions: Allergies nitrofurantoin [From Macrobid] Allergy (Mild, Verified 05/26/16 17:14) Hives nitrofurantoin macrocrystalline [From Macrobid] Allergy (Mild, Verified 17:14) Hives Sulfa (Sulfonamide Antibiotics) Allergy (Mild, Verified 05/26/16 17:14) Hives morphine Adverse Reaction (Mild, Verified 05/26/16 17:14) Headache Home Medications: Home Medications Medication Instructions Recorded Last Taken Meloxicam [Mobic] 7.5 mg PO DAILY 05/26/16 Unknown oxyCODONE HCL/ACETAMINOPHEN 1 tab PO QID PRN 05/26/16 Unknown [Percocet 5 MG/325 MG] - Patient's Past Medical History Patient History - Medical: Anxiety, Arthritis, GERD, Kidney stone, Other - Migraines, Shingles, Patient History - Cardiac/Respiratory: No pertinent hx Patient History - Cancer: No Hx of Cancer Patient History - Surgical Procedures: Appendectomy, Cholecystectomy, Hysterectomy, T & A Patient History - Other: None LMP (females 10-50): hysterectomy - Family History Father Family History - Medical: No pertinent hx Family History - Cardiac/Respiratory: Myocardial Infarction Mother Family History - Medical: Other Family History - Cardiac/Respiratory: Asthma, Hypertension, Hyperlipidemia - Social History Living Situations: spouse Abuse History: No History of abuse Psych History: No pertinent hx Smoking Status: Former smoker Have you smoked in the past 12 months: No Do you dip or chew tobacco: No Smoking Stop Date: 02/15/11 Patient requests Smoking Cessation Consult: No Initiate information on Smoking Cessation: No Alcohol Use: none Drug Use: none - Immunizations Immunizations Up to Date: Yes Hx Pneumococcal Vaccination: No History of Influenza Vaccine: No Procedures CONTRAST ARTHROGRAM (12/06/13) CYSTOSCOPY NEC (08/24/14) EXTIRPATION OF MATTER FROM RIGHT URETER, ENDO (05/01/15) REMOV URETERAL DRAIN (08/24/14) REMOVAL OF INTRALUMINAL DEVICE FROM BLADDER, ENDO (11/22/15) RETROGRADE PYELOGRAM (08/17/14) TU REMOV URETER OBSTRUCT (05/21/14) URETERAL CATHETERIZATION (08/17/14) Medications - Medications Current Medications: Current Medications Hydromorphone HCl (Dilaudid) 1 mg IV Q1H PRN PRN Reason: Moderate Pain Stop: 06/25/16 20:06 Last Admin: 05/27/16 08:12 Dose: 1 mg Sodium Chloride (Sodium Chloride 0.9%) 1,000 mls @ 125 mls/hr IV .Q8H PRN PRN Reason: HYDRATION Stop: 06/25/16 17:42 Last Admin: 05/27/16 02:09 Dose: 125 mls/hr Pantoprazole Sodium 40 mg/ (Sodium Chloride) 100 mls @ 400 mls/hr IV Q12H KALLIE Stop: 06/25/16 20:16 Last Admin: 05/27/16 08:05 Dose: 400 mls/hr Ondansetron HCl (Zofran) 4 mg IV Q4H PRN PRN Reason: Nausea Stop: 06/25/16 20:05 Last Admin: 05/27/16 08:06 Dose: 4 mg Physical Examination - Exam Vital Signs: Vital Signs - Last Taken Temp 36.7 C 05/27/16 07:01 Pulse 84 05/27/16 07:01 Resp 18 05/27/16 07:01 BP 130/74 05/27/16 07:01 Pulse Ox 96 05/27/16 07:01 O2 Oxygen Delivery Method Room Air Constitutional: Present: Alert, Oriented x3, Cooperative, Mild distress - c/o discomfort from NG in left nares. She has just had a cervical spinal fusion from the anterior approach and her throat was already sore to begin with. ENT Exam: Present: normal ENT inspection Neck: Present: normal inspection, other - Cervical incision is healing nicely without s/s infection Respiratory: Present: no respiratory distress, no accessory muscle use Abdomen: Present: soft, nondistended, no rebound tenderness, no hepatospenomegaly, no masses, obese, tender - in epigastrium, mildly. No peritoneal signs. Absent: guarding, rigidity Extremity: Present: normal inspection Skin Exam: Present: normal color, warm/dry Neurologic: Present: no motor/sensory deficits Eye contact: Present: cooperative, good eye contact - Results and Findings: Lab/Microbiology results last 24 hrs: Abnormal/Pending Laboratory Last 24 HRS 05/27/16 05/27/16 05/26/16 08:00 08:00 20:20 RBC 3.84 L Hgb 11.2 L Hct 33.2 L Immature Gran % (Auto) 0.60 H Eosinophils % 3.7 H Chloride 108 H BUN/Creatinine Ratio 25.9 H 29.8 H 05/26/16 20:20 RBC Hgb 12.4 L Hct 36.9 L Immature Gran % (Auto) Eosinophils % Chloride BUN/Creatinine Ratio - Assessments/Findings (1) Partial small bowel obstruction Diagnosis(s): A: PSBO P: Recommend conservative Rx. Pt has moved bowels. Will follow with you. Case d/w hospitalist. Problem: Acute
[2016-05-27 09:18] LABS: Hemoglobin A1C 5.9 % (4.00-6.0)
[2016-05-27] MEDS ORDERED: NALOXONE HCL 1 MG/1 ML SYRG IV PRN (13:36)
[2016-05-27] MEDS ORDERED: diphenhydrAMINE HCL 50 MG/ML VIAL IV PRN (13:36)
[2016-05-27] MEDS ORDERED: TETRACAINE/BENZOCAINE/BUTAMBEN 20 SPRAY BTL TP PRN (13:38)
--- NOTE | 2016-05-27 13:40 | PN ---
Subjective - Date and Time Seen Date: 05/27/16 Time: 13:40 Subjective Narrative: pt admitted with partial SBO with possible transition pt in the terminal ileum yesterday. NG tube in place. with with significant epigastric tenderness. asking for iv pain medications every 1 - 1.5 hours. states she passed gas this am. abdomen soft, non distended. no fever. vss. labs ok. Objective - Review of Systems Generalized/Overall Review: Reports: No Symptoms Reported EENTM: Reports: No Symptoms Reported Respiratory: Reports: No Symptoms Reported Cardiac: Reports: No Symptoms Reported Abdominal: Reports: Abdominal Pain Genitourinary Symptoms: Reports: No Symptoms Reported Musculoskeletal Complaints: Reports: No Symptoms Reported Neurological: Reports: No Symptoms Reported Skin: Reports: No Symptoms Reported Endocrine: Reports: No Symptoms Reported Misc: All systems neg except as marked - Vitals Vitals: Last Vital Signs Temp 37 C 05/27/16 10:36 Pulse 82 05/27/16 10:36 Resp 20 05/27/16 10:36 BP 113/65 05/27/16 10:36 Pulse Ox 94 05/27/16 10:36 - Abnormal Lab Findings Abnormal Lab Findings: Abnormal Lab Results 05/26/16 05/26/16 05/27/16 Range/Units 20:20 20:20 08:00 RBC 3.84 L (4.2-5.4) M/mm3 Hgb 12.4 L 11.2 L (12.5-16.0) gm/dL Hct 36.9 L 33.2 L (37.0-47.0) % Immature Gran % (Auto) 0.60 H (0.001-0.429) % Eosinophils % 3.7 H (0.0-3.0) % Chloride (97-106) mmol/L BUN/Creatinine Ratio 29.8 H (9.0-21.6) 05/27/16 Range/Units 08:00 RBC (4.2-5.4) M/mm3 Hgb (12.5-16.0) gm/dL Hct (37.0-47.0) % Immature Gran % (Auto) (0.001-0.429) % Eosinophils % (0.0-3.0) % Chloride 108 H (97-106) mmol/L BUN/Creatinine Ratio 25.9 H (9.0-21.6) - Exam Constitutional: Present: Alert, Oriented x3, Cooperative, No distress ENT Exam: Present: hearing grossly normal Neck: Present: supple Breasts: Present: Exam deferred Respiratory: Present: lungs clear, normal breath sounds, no respiratory distress Cardiovascular/Chest: Present: regular rate, rhythm, no chest tenderness Abdomen: Present: soft, nondistended, tender - epigastric region /Rectal: Present: Exam deferred Extremity: Present: normal range of motion, non-tender, normal inspection Skin Exam: Present: normal color, warm/dry, no cyanosis Neurologic: Present: alert, oriented x 3 Assessment/Plan Plan Narrative: Partial SBO - cont NG tube. - surgery following. - pt having significant pain. will change to dilaudid case aide. - appreciate surgery recommendations. - keep NPO - ice chips ok. - patient is improving as she did pass gas this am and her abdomen is soft. await additional recommendations by surgery. gerd - protonix iv while npo code status: full code vte: no blood thinner - monitor for possible acute surgical need. SCDs while in bed. gi proph: iv protonix. - Problems/Diagnosis (1) Partial small bowel obstruction Problem: Acute (2) GERD (gastroesophageal reflux disease) Problem: Chronic Qualifiers: Esophagitis presence: esophagitis presence not specified Qualified Code(s) : K21.9 - Gastro-esophageal reflux disease without esophagitis (3) Chronic low back pain Problem: Chronic Qualifiers: Back pain laterality: unspecified Sciatica presence: unspecified whether sciatica present Qualified Code(s): M54.5 - Low back pain; G89.29 - Other chronic pain
[2016-05-27] MEDS: HYDROmorphone HCL IN 0.9% NACL 50 ML CARTRIDGE IV PRN (14:05)
[2016-05-28] MEDS: ONDANSETRON HCL/PF 2 MG/ML VIAL IV PRN ×3 (01:45→18:48)
[2016-05-28] MEDS: NORMAL SALINE 1,000 ML IV PRN ×3 (03:29→19:13)
[2016-05-28] MEDS: PANTOPRAZOLE SODIUM 40 MG in NORMAL SALINE 100 ML IV SCH ×2 (07:24→20:26)
[2016-05-28] MEDS: HYDROmorphone HCL IN 0.9% NACL 50 ML CARTRIDGE IV PRN (15:26)
[2016-05-29] MEDS: HYDROmorphone HCL IN 0.9% NACL 50 ML CARTRIDGE IV PRN (00:38)
[2016-05-29] MEDS: NORMAL SALINE 1,000 ML IV PRN ×3 (03:34→20:43)
[2016-05-29] MEDS: ONDANSETRON HCL/PF 2 MG/ML VIAL IV PRN ×2 (07:24→15:38)
[2016-05-29] MEDS: PANTOPRAZOLE SODIUM 40 MG in NORMAL SALINE 100 ML IV SCH ×2 (07:53→20:43)
--- NOTE | 2016-05-29 08:30 | PN ---
Subjective - Date and Time Seen Date: 05/28/16 Time: 12:30 Subjective Narrative: Reports pain worse today, more diffuse. No bm or passing gas. Denies fever, chills, or vomiting. Objective - Vitals Vitals: Last Vital Signs 05/28/16 10:27 Temperature 37 C Pulse Rate 83 Respiratory 18 Rate Blood Pressure 134/77 O2 Sat by Pulse 94 Oximetry - Exam Constitutional: Present: Alert, Oriented x3, Cooperative Respiratory: Present: lungs clear, normal breath sounds Cardiovascular/Chest: Present: regular rate, rhythm, no murmur Abdomen: Present: Normal bowel sounds, soft, nondistended, tender - diffuse Assessment/Plan - Problems/Diagnosis (1) Small bowel obstruction Problem: Acute Narrative: Pain worsened today, will increase [employer]. Bowel sounds are active today, hoping this is a sign she will soon be improving. Continue NG tube and NPO status.
[2016-05-30] MEDS: NORMAL SALINE 1,000 ML IV PRN (05:08)
[2016-05-30] MEDS: PANTOPRAZOLE SODIUM 40 MG in NORMAL SALINE 100 ML IV SCH ×2 (07:43→20:13)
[2016-05-30] MEDS: KETOROLAC TROMETHAMINE 30 MG/ML VIAL IV SCH ×3 (09:15→20:13)
[2016-05-30] MEDS: oxyCODONE HCL/ACETAMINOPHEN 1 TAB TABLET PO PRN ×2 (13:02→19:11)
[2016-05-30] MEDS: SIMETHICONE 80 MG TAB.CHEW PO PRN ×2 (13:02→19:11)
[2016-05-31] MEDS: KETOROLAC TROMETHAMINE 30 MG/ML VIAL IV SCH ×3 (02:33→14:21)
[2016-05-31] MEDS: oxyCODONE HCL/ACETAMINOPHEN 1 TAB TABLET PO PRN ×3 (02:36→14:25)
[2016-05-31] MEDS: PANTOPRAZOLE SODIUM 40 MG in NORMAL SALINE 100 ML IV SCH (08:29)
[2016-05-31] MEDS: SIMETHICONE 80 MG TAB.CHEW PO PRN (11:22)
[2016-05-31 16:03] VITALS: BP 133/73
--- NOTE | 2016-05-31 16:18 | PN ---
Subjective - Date and Time Seen Date: 05/29/16 Time: 16:45 Subjective Narrative: Reports abdominal pain continues, ambulating well, no BM or flatus. No fever or chills. Objective - Vitals Vitals: Last Vital Signs VSS, Afebrile - Exam Constitutional: Present: Alert, Oriented x3, Cooperative ENT Exam: Present: hearing grossly normal Respiratory: Present: lungs clear, normal breath sounds Cardiovascular/Chest: Present: regular rate, rhythm, no murmur Abdomen: Present: soft, tender - diffuse, hypoactive Appearance: Present: appropriate appearance, appropriate insight Eye contact: Present: cooperative, good eye contact, normal speech Assessment/Plan Plan Narrative: No BM or flatus today. CT scan to be repeated to monitor bowel obstruction. Pain controlled. Remains NPO, NG tube in place. - Problems/Diagnosis (1) Small bowel obstruction Problem: Acute
--- NOTE | 2016-05-31 16:19 | PN ---
Subjective - Date and Time Seen Date: 05/30/16 Time: 16:50 Subjective Narrative: Feeling much better. Had bowel movement and passing gas. CT scan showed resolution of bowel obstruction. Ambulating well, no pain. Objective - Vitals Vitals: Last Vital Signs VSS, Afebrile - Exam Constitutional: Present: Alert, Oriented x3, Cooperative ENT Exam: Present: hearing grossly normal Respiratory: Present: lungs clear, normal breath sounds Cardiovascular/Chest: Present: regular rate, rhythm, no murmur Abdomen: Present: Normal bowel sounds, soft, nontender, nondistended Skin Exam: Present: normal color, warm/dry, no cyanosis Assessment/Plan Plan Narrative: Bowel obstruction resolved. NG tube removed tolerating diet, will advance as able. If tolerates advancement will plan to discharge to home tomorrow. - Problems/Diagnosis (1) Small bowel obstruction Problem: Acute
--- NOTE | 2016-05-31 16:29 | DS ---
(1) Small bowel obstruction Problem: Acute Description of Stay: Emily is a 46 yo female that was admitted as a transfer from [facility]. She had a CT there that showed partial small bowel obstruction. She was not having bowel movement or flatus during hospital course. She was made NPO and NG tube was placed. General surgery was consulted and updated on patient's condition throughout hospital stay. For a few days she did not have bowel movement or flatus. A CT scan was performed which potentially resolved the obstruction with the contrast as the CT showed no evidence of obstruction and following drinking the contrast she was having bowel movements and passing gas. NG tube was removed and diet was advanced. She tolerated advancement in diet and discharged to home. Procedures Performed: see notes below List Procedures: NG Tube placed 05/26/16 NG Tube removed 05/30/16 Discharge Disposition: Home self care Disposition: Home self-care Condition: Good Discharge Activity: Activity as tolerated Discharge Diet: High Fiber Referrals: Yaquelin Yadav DO [Associate] - One Week Problem Oriented Discharge Instructions to Patient/Family: Small Bowel Obstruction, [id number] Additional Patient Instructions (free text): Follow up with Yaquelin Yadav - FridayJune 07 @ 9:30 a.m. Prescriptions (Any new or edited meds): HYDROcodone/ACETAMINOPHEN [Hydrocodon-Acetaminophen 5-325] 1 each PO Q8H #60 tablet Complete Home Medications List: Complete Home Medication List: Meloxicam [Mobic] 7.5 mg PO DAILY 05/26/16 HYDROcodone/ACETAMINOPHEN [Hydrocodon-Acetaminophen 5-325] 1 each PO Q8H #60 tablet 05/31/16
== END 2016-05-31 17:11 | disposition home or self-care (01) | DRG 390 ==
LOC: ER 15:09 → MS 17:23
PROVIDERS: ADMIT Nurse Practitioner Critical Care Medicine; ATTEND Family Medicine
DX: K56.60 Unspecified intestinal obstruction (principal); K21.9 Gastro-esophageal reflux disease without esophagitis; M54.5 Low back pain; Z87.891 Personal history of nicotine dependence

== ENCOUNTER 2016-07-22 09:41 | Emergency (ER) | payer OTHER ==
[2016-07-22] MEDS ORDERED: HYDROmorphone HCL 1 MG/ML DISP.SYRIN IV ONE ×2 (10:46→11:17)
[2016-07-22] MEDS ORDERED: ONDANSETRON HCL/PF 2 MG/ML VIAL IV ONE (10:46)
[2016-07-22] MEDS ORDERED: NORMAL SALINE 1,000 ML IV ONE (10:48)
--- NOTE | 2016-07-22 10:48 | ERNOTE ---
ER Female HPI Stated Complaint: KIDNEY STONE Time Seen by Provider: 07/22/16 10:44 Source: patient Exam Limitations: no limitations Immunizations: IMMUNIZATION HX Immunizations Up to Date Yes History of Influenza Vaccine Yes Hx Pneumococcal Vaccination No Allergies/Adverse Reactions: Allergies nitrofurantoin [From Macrobid] Allergy (Mild, Verified 07/22/16 10:00) Hives nitrofurantoin macrocrystalline [From Macrobid] Allergy (Mild, Verified 10:00) Hives Sulfa (Sulfonamide Antibiotics) Allergy (Mild, Verified 07/22/16 10:00) Hives morphine Adverse Reaction (Mild, Verified 07/22/16 10:00) Headache Home Medications: HOME MEDICATIONS Meloxicam [Mobic] 7.5 mg PO DAILY 05/26/16 [Last Taken Unknown] HYDROcodone/ACETAMINOPHEN [Hydrocodon-Acetaminophen 5-325] 1 each PO Q8H #60 tablet 05/31/16 [Last Taken Unknown] Gabapentin [Neurontin] 300 mg PO TID 07/22/16 [Last Taken Unknown] HYDROcodone/ACETAMINOPHEN [[place] 5-325] 1 - 2 tab PO QID PRN #12 tab 07/22/16 [ Last Taken Unknown] Tamsulosin HCl [Flomax] 0.4 mg PO DAILY@1800 #60 cap 07/22/16 [Last Taken Unknown] busPIRone HCL [Buspar] 5 mg PO TID 07/22/16 [Last Taken Unknown] - History of Present Illness Narrative: Severe bilateral flank pain Review of Systems - Review of Systems Constitutional: Present: no symptoms reported EYE: Present: no symptoms reported ENT: Present: no symptoms reported Respiratory: Present: no symptoms reported Cardiology: Present: no symptoms reported Gastrointestinal/Abdominal: Present: other - Advair flank pain bilaterally. Genitourinary: Present: other - Advair flank pain bilaterally. Musculoskeletal: Present: no symptoms reported Skin: Present: no symptoms reported Neurological: Present: no symptoms reported - Patient's Past Medical History Patient History - Medical: Anxiety, Arthritis, GERD, Kidney stone, UTI'S, Other Patient History - Cardiac/Respiratory: No pertinent hx Patient History - Cancer: No Hx of Cancer Patient History - Surgical Procedures: Appendectomy, Cholecystectomy, Hysterectomy, T & A, Other Patient History - Other: None - Family History Father Family History - Medical: No pertinent hx Family History - Cardiac/Respiratory: Myocardial Infarction Mother Family History - Medical: Other Family History - Cardiac/Respiratory: Asthma, Hypertension, Hyperlipidemia - Social History Living Situations: spouse Abuse History: No History of abuse Psych History: No pertinent hx Smoking Status: Never smoker Alcohol Use: none Drug Use: none - Immunizations Immunizations Up to Date: Yes Hx Pneumococcal Vaccination: No History of Influenza Vaccine: Yes Physical Exam - Physical Exam General Appearance: Present: wd/wn, alert, mild distress - continue to pain Ears, Nose, Throat: Present: normal ENT inspection Respiratory: Present: no respiratory distress, normal breath sounds, no accessory muscle use, chest nontender, lungs clear Gastrointestinal/Abdominal: Present: normal bowel sounds, nontender, nondistended, soft, other - as bilateral flank pain upon percussion Back Exam: Present: CVA tenderness (R), CVA tenderness (L) Extremity Exam: Present: normal inspection, normal range of motion ED Progress - Results and Orders Patient's Lab Results:: I have reviewed the patient's lab results. - Vital Signs Patient's Vital Signs:: I have reviewed the patient's vital signs. Vital Signs: Vital Signs 07/22/16 09:56 Temperature 36.8 C Pulse Rate 90 Respiratory 14 Rate Blood Pressure 150/91 O2 Sat by Pulse 97 Oximetry - CT/Ultrasound CT/Ultrasound Narrative: CT of the abdomen and pelvis was done and read by the radiologist as multiple small kidney stone inside the parenchyma of the kidney none in the ureters no hydronephrosis - Progress/Reassessment Chief Complaint: Genitourinary Problem Plan - Plan Plan: And has nephrolithiasis she will be given Flomax and [place] for trial and passage and pain control she is to follow-up with her primary care doctor Departure Clinical Impression: Nephrolithiasis - Departure Disposition: Home self-care Condition: Fair Instructions: Renal Colic, [id number], Kidney Stones, [id number] Referrals: Yaquelin Yadav DO [Primary Care Provider] - Prescriptions: HYDROcodone/ACETAMINOPHEN [[place] 5-325] 1 - 2 tab PO QID PRN #12 tab PRN Reason: Pain Tamsulosin HCl [Flomax] 0.4 mg PO DAILY@1800 #60 cap
--- OUTSIDE RECORDS SUMMARY | 2016-07-22 10:54 | XMS REPORT | Continuity of Care Document ---
:1970 Author Organization [facility] ([facility]) Address [address] [place] [address] Phone [phone] Care Team Providers Name Role Phone Unavailable Primary Care Provider Unavailable Source Comments This disclosure is being made pursuant to the Care Everywhere program, applicable federal and state laws, and may not contain all informaitonavailable regarding this patient.[facility] ([facility]) Active Allergies and Adverse Reactions Allergen [...] disease) 06/19/2010 08/12/2012 Tobacco abuse 06/19/2010 11/20/2012 Immunizations Name Dates Previously Given Next Due [...] Cancer Screening 05/12/2014 05/13/2011 Influenza Vaccine: Seasonal 09/17/2016 11/20/2012, (Season Ended) 2011 Lipid Disorder Screening 11/20/2017 11/20/2012, Additional history exists 04/11/2011, 10/11/2010 Td Vaccine 11/14/2021 11/15/2011, 04/11/2003 Tdap Vaccine Completed 11/15/2011 Results from Last 3 Months Not on file
[2016-07-22] MEDS ORDERED: HYDROmorphone HCL 1 MG/ML DISP.SYRIN ONE ×2 (10:56→11:29)
[2016-07-22] MEDS ORDERED: ONDANSETRON HCL/PF 2 MG/ML VIAL ONE (10:56)
[2016-07-22 11:04] LABS: Hematocrit 37.9 % (37.0-47.0); Hemoglobin 12.9 gm/dL (12.5-16.0); Mean Cell Volume 84.2 fl (78-100); Mean Corpuscular Hemoglobin 28.7 pg (27-31); Mean Platelet Volume 8.3 fl (6.0-9.5); Neutrophil # 2.9 K/mm3 (1.3-6.0); Neutrophil % 50.9 % (42-75.0); Platelet Count 273 K/mm3 (150-450); Red Cell Distribution Width 13.1 % (11.5-14.0); White Blood Count 5.7 K/mm3 (4.0-10.5)
[2016-07-22 11:06] LABS: Urine Bilirubin Negative (NEGATIVE); Urine Ketone Negative (NEGATIVE); Urine Nitrite Negative (NEGATIVE); Urine Protein Negative (NEGATIVE); Urine Specific Gravity 1.025 SP.GR. (1.005-1.010); Urine Urobilinogen Normal (NORMAL)
[2016-07-22 11:15] LABS: Urine Appearance Clear; Urine Bacteria TRACE; Urine Blood 5 /ul (NEGATIVE); Urine Color Yellow; Urine WBC TRACE /hpf (0-5)
[2016-07-22] MEDS ORDERED: KETOROLAC TROMETHAMINE 30 MG/ML VIAL IV ONE (11:18)
[2016-07-22] MEDS ORDERED: KETOROLAC TROMETHAMINE 30 MG/ML VIAL ONE (11:29)
[2016-07-22] MEDS ORDERED: PROMETHAZINE HCL 25 MG in DEXTROSE 5 % IN WATER 50 ML IV ONE ×2 (12:28)
[2016-07-22 13:43] VITALS: BP 103/60
== END 2016-07-22 13:48 | disposition home or self-care (01) ==
LOC: ER 09:41
DX: N20.0 Calculus of kidney (principal); Z87.442 Personal history of urinary calculi

== ENCOUNTER 2016-07-31 11:25 | Day surgery (SDC) | payer OTHER ==
[~2016-07-31 11:25] MED LIST: oxyCODONE HCL/ACETAMINOPHEN 1 TAB TABLET PO PRN
--- OUTSIDE RECORDS SUMMARY | 2016-07-31 11:27 | XMS REPORT | Continuity of Care Document ---
:1970 Author Organization [facility] ([facility]) Address [address] [place] [address] Phone [phone] Care Team Providers Name Role Phone Unavailable Primary Care Provider Unavailable Source Comments This disclosure is being made pursuant to the Care Everywhere program, applicable federal and state laws, and may not contain all informaitonavailable regarding this patient.[facility] ([facility]) Active Allergies and Adverse Reactions Allergen [...]
--- NOTE | 2016-07-31 13:14 | OR ---
Operative Report - Dictated Report Narrative: Preoperative diagnosis: Indwelling stent Postoperative diagnosis: Same Anesthesia: None Procedure: Flexible cystoscopy with stent removal Indications: Indwelling stent Descritpion: Consent obtained. Patient prepped and drapped. Lidocaine jelly used to anesthetize urethra. Flexible scope inserted and navigated to bladder. Stent identified, grasped and pulled per urethra. Patient tolerated. EBL: 0 ml Specimen: None Condition: Tolerated procedure Follow-up: 6 month with UA/KUB
[2016-07-31 14:36] VITALS: BP 140/84
== END 2016-07-31 11:26 | disposition home or self-care (01) ==
LOC: AMB 11:25
PROVIDERS: ATTEND Urology
PROC: 0TP98DZ Removal of Intraluminal Device from Ureter, Via Natural or Artificial Opening Endoscopic (ICD-10-PCS; principal; 2016-07-31 13:00)
DX: Z46.6 Encounter for fitting and adjustment of urinary device (principal); E66.9 Obesity, unspecified; Z68.41 Body mass index [BMI] 40.0-44.9, adult; Z87.891 Personal history of nicotine dependence